=== PATIENT | female | born 1985 | race African-American/Black ===

== ENCOUNTER 2024-03-03 12:21 | Emergency (ER) | payer OTHER ==
[~2024-03-03] VITALS: Ht 165.1 cm; Wt 50.3 kg
[2024-03-03] MEDS ORDERED: B-12100010 PO (12:33)
[2024-03-03] MEDS ORDERED: VITA100093 PO (12:33)
[2024-03-03] MEDS: CETIRIZINE (ZyrTEC) 10 MG TAB PO ONE (12:50)
[2024-03-03] MEDS ORDERED: ALL10TAB2 PO (14:20)
[2024-03-03] MEDS ORDERED: CEPH500C PO (14:20)
[2024-03-03] MEDS ORDERED: CETI-24 PO (14:23)
[2024-03-03] MEDS: CEPHALEXIN 500 MG CAP PO ONE (14:28)
[2024-03-03 14:30] VITALS: BP 145/79; TEMP 98.2; O2SAT 100
== END 2024-03-03 14:30 | disposition home or self-care (01) ==
LOC: M ED 12:21
DX: R22.42 Localized swelling, mass and lump, left lower limb (principal); Z79.2 Long term (current) use of antibiotics; Z79.899 Other long term (current) drug therapy

== ENCOUNTER 2025-02-10 13:57 | Outpatient (CLI) | payer OTHER ==
[~2025-02-10] VITALS: Ht 165.1 cm; Wt 49.5 kg
[~2025-02-10 13:57] MED LIST: ALBUTEROL SULFATE 2.5 MG/0.5 ML INH CONCENTRATE NEB SOLN INH PRN; ALL10TAB2 PO; B-12100010 PO; CEPH500C PO; CETI-24 PO; EPINEPHrine INJ 1 MG/ML 1ML AMP IM PRN; VITA100093 PO; diphenhydrAMINE 50 MG/ML VIAL IV PRN
[2025-02-10 14:30] VITALS: BP 151/76; O2SAT 100
[2025-02-10] MEDS: NS IV ONE (15:09)
[2025-02-10] MEDS: FERRIC CARBOXYMALTOSE IV ONE (15:09)
[2025-02-10 16:10] VITALS: BP 129/76; O2SAT 100
== END 2025-02-10 16:10 | disposition home or self-care (01) ==
LOC: M INFU 13:57
PROVIDERS: ATTEND Internal Medicine
DX: D50.9 Iron deficiency anemia, unspecified (principal)
CPT/HCPCS: 96365; J1439

== ENCOUNTER 2025-02-19 11:55 | Outpatient (CLI) | payer OTHER ==
[~2025-02-19] VITALS: Ht 165.1 cm; Wt 49.6 kg
[2025-02-19 11:55] VITALS: BP 113/73; O2SAT 98
[2025-02-19] MEDS: FERRIC CARBOXYMALTOSE IV ONE (12:50)
[2025-02-19] MEDS: NS IV ONE (12:50)
[2025-02-19 13:30] VITALS: BP 125/78; O2SAT 100
== END 2025-02-19 13:30 | disposition home or self-care (01) ==
LOC: M INFU 11:55
PROVIDERS: ATTEND Internal Medicine
DX: D50.9 Iron deficiency anemia, unspecified (principal)
CPT/HCPCS: 96365; J1439